=== PATIENT | female | born 1975 | race Caucasian/White ===

== ENCOUNTER 2016-08-14 09:09 | Emergency (ER) | payer MEDICAID, OTHER ==
[2016-08-14 09:21] VITALS: BP 134/77; TEMP 98.1; O2SAT 97
--- NOTE | 2016-08-14 09:58 | C.PDOC ---
History Of Present Illness 40 yr old female presents to the ER with complaints of pain to the right upper arm for the past 3 days. Patient states she was working out in the gym, doing curls and lifting weight when she felt the pain come on. Patient states her arm hurts when she moves it or touches it, has been seen by her PMD who prescribed her naproxen 500 mg and refereed her for an MRI. Patient states she couldn't tolerate the MRI. Patient denies chest pain, back pain, shoulder pain, neck pain , weakness or numbness. Time Seen by Provider: 08/14/16 09:30 Chief Complaint (Nursing): Upper Extremity Problem/Injury History Per: Patient History/Exam Limitations: no limitations Onset/Duration Of Symptoms: Days (3) Past Medical History Reviewed: Historical Data, Nursing Documentation, Vital Signs Vital Signs: Last Vital Signs Temp 98.1 F 08/14/16 09:20 Pulse 85 08/14/16 10:04 Resp 18 08/14/16 10:04 BP 134/77 08/14/16 09:20 Pulse Ox 97 08/14/16 09:57 Family History: States: No Known Family Hx - Social History Hx Alcohol Use: No Hx Substance Use: No - Immunization History Hx Tetanus Toxoid Vaccination: Yes Hx Influenza Vaccination: Yes Hx Pneumococcal Vaccination: Yes Review Of Systems Except As Marked, All Systems Reviewed And Found Negative. Cardiovascular: Negative for: Chest Pain Musculoskeletal: Positive for: Arm Pain (Right upper arm pain ). Negative for: Neck Pain, Shoulder Pain Neurological: Negative for: Weakness, Numbness Physical Exam - Physical Exam Appears: Well, Non-toxic, No Acute Distress Skin: Warm, Dry, No Rash Head: Atraumatic, Normacephalic Oral Mucosa: Moist Neck: Normal, Normal ROM, Supple Chest: Symmetrical, No Tenderness Cardiovascular: Rhythm Regular, No Murmur Respiratory: Normal Breath Sounds, No Rales, No Rhonchi, No Stridor, No Wheezing Extremity: Normal ROM, Tenderness (Right upper arm, tender to touch), Capillary Refill (<2), No Deformity, No Swelling Pulses: Left Radial: Normal, Right Radial: Normal Neurological/Psych: Oriented x3, Normal Speech, Normal Motor, Normal Sensation, Normal Reflexes ED Course And Treatment O2 Sat by Pulse Oximetry: 97 Progress Note: Patient is given prescription of Tramadol and instrucetd to follow up with the clinic for further evaluation. Patient is treated with Motrin , Tylenol and Valium in ED. On reevaluation, patient is resting comfortably. In no apparent disstress. Medical Decision Making Medical Decision Making: PLAN: * Motrin PO * Tylenol PO * Valium PO Disposition Counseled Patient/Family Regarding: Diagnosis, Need For Followup, Rx Given - Disposition Referrals: Clinic,Med Surg [Primary Care Provider] - Disposition: HOME/ ROUTINE Disposition Time: 09:55 Condition: STABLE Prescriptions: traMADol/Acetaminophen [Ultracet 37.5/325 mg] 1 tab PO TID PRN #20 tab PRN Reason: pain Instructions: Muscle Strain (ED), RICE Therapy (ED) Forms: General Discharge Instructions, Work Excuse - POA Present On Arrival: None - Clinical Impression Clinical Impression: Muscle strain - Scribe Statement The provider has reviewed the documentation as recorded by the Scribe Perla Banegas Provider Attestation: All medical record entries made by the Scribe were at my direction and personally dictated by me. I have reviewed the chart and agree that the record accurately reflects my personal performance of the history, physical exam, medical decision making, and the department course for this patient. I have also personally directed, reviewed, and agree with the discharge instructions and disposition.
[2016-08-14 10:05] VITALS: PULSE 85; RESP 18
== END 2016-08-14 10:05 | disposition home or self-care (01) ==
LOC: C.ER 09:09 → SUPCPDRO 09:09 → C.ER 10:05
DX: S46.811A Strain of other muscles, fascia and tendons at shoulder and upper arm level, right arm, initial encounter (principal); X58.XXXA Exposure to other specified factors, initial encounter; Y93.B9 Activity, other involving muscle strengthening exercises; Y92.39 Other specified sports and athletic area as the place of occurrence of the external cause

== ENCOUNTER 2018-01-15 15:06 | Emergency (ER) | payer SELFPAY ==
[2018-01-15 15:15] VITALS: BP 121/72; TEMP 98.5; O2SAT 98
--- NOTE | 2018-01-15 15:18 | C.PDOC ---
History Of Present Illness 42 year old female presents to ED via EMS with complaints of ankle pain after twisting it outward when walking in the park today. Denies other injury, numbness or weakness. Time Seen by Provider: 01/15/18 15:16 Chief Complaint (Nursing): Lower Extremity Problem/Injury History Per: Patient History/Exam Limitations: no limitations Onset/Duration Of Symptoms: Sudden Onset Past Medical History Reviewed: Historical Data, Nursing Documentation, Vital Signs Vital Signs: Last Vital Signs Temp 98.5 F 01/15/18 15:12 Pulse 102 H 01/15/18 15:12 Resp 18 01/15/18 15:12 BP 121/72 01/15/18 15:12 Pulse Ox 98 01/15/18 15:12 - Medical History PMH: No Chronic Diseases Surgical History: No Surg Hx Family History: States: Unknown Family Hx - Social History Hx Alcohol Use: No Hx Substance Use: No - Immunization History Hx Tetanus Toxoid Vaccination: No Hx Influenza Vaccination: No Hx Pneumococcal Vaccination: No Review Of Systems Except As Marked, All Systems Reviewed And Found Negative. Musculoskeletal: Positive for: Leg Pain (ankle pain) Physical Exam - Physical Exam Appears: Non-toxic, No Acute Distress Skin: Warm, Dry, No Ecchymosis Head: Atraumatic, Normacephalic Eye(s): bilateral: Normal Inspection Neck: Normal ROM Chest: Symmetrical Extremity: Left: Atraumatic, Normal ROM, Right: Limited ROM To Joint, Other (swelling and tenderness to lateral malleolus above and below) Pulses: Left Dorsalis Pedis: Normal Neurological/Psych: Oriented x3, Normal Speech Gait: Steady ED Course And Treatment O2 Sat by Pulse Oximetry: 98 Medical Decision Making Medical Decision Making: Impression: ankle injury Plan: * XRay ankle * Tylenol * Ice pack Progress: Xray viewed by me shows no acute fracture Aircast applied by CP. Patient to follow up with PMD or orthopedic Disposition Counseled Patient/Family Regarding: Diagnosis, Need For Followup, Rx Given - Disposition Referrals: Kesha Espino MD [Staff Provider] - Disposition: HOME/ ROUTINE Disposition Time: 15:39 Condition: STABLE Additional Instructions: Your xray was normal, no fracture. Please apply ice to area 15 minutes three times a day. Take Motrin as needed for pain every 6 hours, with food to not upset stomach. Follow up with orthopedic if pain persists over one week. Prescriptions: Ibuprofen [Motrin] 600 mg PO Q8 #30 tab Instructions: Ankle Sprain (DC) Forms: [employer] ([place]) Print Language: LITHUANIAN - POA Present On Arrival: None - Clinical Impression Clinical Impression: Ankle sprain
--- NOTE | 2018-01-15 15:46 | RAD ---
Date of service: 01/15/2018 PROCEDURE: Right Ankle Radiographs. HISTORY: Status post twisting injury, lateral swell/pain COMPARISON: None FINDINGS: BONES: No evidence of acute displaced fracture nor dislocation. The osseous structures appear intact. JOINTS: Normal. No osteoarthritis. Ankle mortise maintained. Talar dome intact SOFT TISSUES: There is mild soft tissue swelling overlying the lateral malleolus. OTHER FINDINGS: None. IMPRESSION: No evidence of acute displaced fracture nor dislocation. Mild lateral soft tissue swelling
[2018-01-15 16:05] VITALS: PULSE 84; RESP 16
== END 2018-01-15 16:05 | disposition home or self-care (01) ==
LOC: C.ER 15:06
DX: S93.401A Sprain of unspecified ligament of right ankle, initial encounter (principal); X50.1XXA Overexertion from prolonged static or awkward postures, initial encounter; Y93.01 Activity, walking, marching and hiking; Y92.830 Public park as the place of occurrence of the external cause

== ENCOUNTER 2018-07-14 10:49 | Outpatient (CLI) | payer OTHER | END 2018-07-14 10:50 | disposition home or self-care (01) | LOC: C.MAMMO 10:50 | DX: Z12.31 Encounter for screening mammogram for malignant neoplasm of breast (principal) ==